=== PATIENT | female | born 1980 | race Caucasian/White ===

== ENCOUNTER 2024-01-14 11:10 | Emergency (ER) | payer MEDICAID ==
[~2024-01-14] VITALS: Ht 160 cm; Wt 115.2 kg
[2024-01-14 11:27] VITALS: TEMP 98.5
[2024-01-14] MEDS ORDERED: LIDOCAINE 1%-EPI 1:100,000 20 ML VIAL ONE (12:16)
[2024-01-14] MEDS ORDERED: CEPH-570 PO (12:49)
[2024-01-14] MEDS ORDERED: SULF1TAB48 PO (12:49)
[2024-01-14 13:27] VITALS: BP 136/93; O2SAT 100
[2024-01-14] MEDS: HYDROCODONE/APAP 5/325MG TABLET PO ONE (13:27)
== END 2024-01-14 13:29 | disposition home or self-care (01) ==
LOC: ER 11:19
DX: L02.411 Cutaneous abscess of right axilla (principal); Z79.899 Other long term (current) drug therapy
CPT/HCPCS: 99283; 10060; A6407; J3490

== ENCOUNTER 2024-06-23 16:39 | Emergency (ER) | payer MEDICAID ==
[~2024-06-23] VITALS: Ht 165.1 cm; Wt 115.2 kg
[~2024-06-23 16:39] MED LIST: CEPH-570 PO; SULF1TAB48 PO
[2024-06-23] MEDS ORDERED: ONDANSETRON 4 MG TAB.RAPDIS ONE (18:44)
[2024-06-23] MEDS ORDERED: MECLIZINE HCL 25 MG TABLET ONE (18:44)
[2024-06-23] MEDS: MECLIZINE HCL 12.5 MG TABLET PO ONE (18:47)
[2024-06-23] MEDS: ONDANSETRON 4 MG TAB.RAPDIS PO ONE (18:47)
[2024-06-23 18:55] LABS: BASOPHILS # (AUTO) 0.1 K/uL (0.0-0.2); EOSINOPHILS # (AUTO) 0.2 K/uL (0.0-0.7); LYMPHOCYTES # (AUTO) 2.4 K/uL (0.8-4.8); MONOCYTES # (AUTO) 0.7 K/uL (0.1-1.30)
[2024-06-23 19:01] LABS: CALCIUM, SERUM 8.9 mg/dL (8.5-10.1); CREATININE 0.7 mg/dL (0.6-1.3)
[2024-06-23 19:02] LABS: BASOPHILS % (AUTO) 0.6 % (0.0-2.0); EOSINOPHILS % (AUTO) 2.7 % (0.0-6.0); HEMATOCRIT 39 % (33-45); MEAN CORPUSCULAR HEMOGLOBIN 27 PG (26.0-33.0); MEAN CORPUSCULAR HGB CONC 34 g/dl (31.0-36.0); MEAN CORPUSCULAR VOLUME 81 fL (82-100); NEUTROPHILS # (AUTO) 4.7 K/uL (1.8-8.9); NEUTROPHILS % (AUTO) 57.7 % (43.0-81.0); PLATELET COUNT (AUTO) 319 K/uL (150-450); RED BLOOD CELL COUNT(AUTO) 4.78 MIL/uL (4.0-5.2); RED CELL DISTRIBUTION WIDTH 15.2 % (11.5-15.0); WHITE BLOOD COUNT (AUTO) 8.2 K/uL (4.3-11.0)
[2024-06-23] MEDS ORDERED: BENZ-13 PO (19:11)
[2024-06-23] MEDS ORDERED: GUAI1TBM19 PO (19:11)
[2024-06-23] MEDS ORDERED: MECL-159 PO (19:11)
[2024-06-23] MEDS ORDERED: ONDA4TAB5 PO (19:11)
[2024-06-23] MEDS ORDERED: ALBU8.5H8 INH (19:11)
[2024-06-23 19:30] VITALS: BP 139/80; TEMP 98.6; O2SAT 98
== END 2024-06-23 19:31 | disposition home or self-care (01) ==
LOC: ER 16:46
DX: R42 Dizziness and giddiness (principal); R05.9 Cough, unspecified; R11.0 Nausea; E11.9 Type 2 diabetes mellitus without complications; F17.200 Nicotine dependence, unspecified, uncomplicated
CPT/HCPCS: 99283; 85025; 80048; 36415; J8597; Q0162